=== PATIENT | female | born 1945 | race Caucasian/White ===

== ENCOUNTER 2019-06-20 09:34 | Emergency (ER) | payer MEDICARE ==
[~2019-06-20] VITALS: Ht 162.6 cm; Wt 56.8 kg
[2019-06-20] MEDS ORDERED: normal saline 1000ML IV soln IVB ONE (09:45)
[2019-06-20] MEDS ORDERED: ondansetron/PF 4mg/2ml inj IV ONE (09:45)
[2019-06-20] MEDS ORDERED: fentaNYL/PF 50MCG/1 ML 2ML syringe IV ONE (09:45)
[2019-06-20] MEDS ORDERED: ketamine 10mg/ml 20ml inj IV ONE (10:10)
[2019-06-20] MEDS ORDERED: MIDAZolam 5mg/ml 2ml vial IV ONE (10:10)
[2019-06-20] MEDS ORDERED: ketamine 50 mg/ml 10ml vial IV ONE (10:20)
[2019-06-20] MEDS ORDERED: HYDR-4383 PO (10:46)
[2019-06-20] MEDS ORDERED: ONDA4TAB6 PO (10:46)
[2019-06-20] MEDS ORDERED: HYDROcodone/acetaminophen 5mg/325mg tablet PO ONE (12:40)
[2019-06-20 14:12] VITALS: BP 130/65
== END 2019-06-20 14:14 | disposition home or self-care (01) ==
LOC: ER 09:35
DX: S82.852A Displaced trimalleolar fracture of left lower leg, initial encounter for closed fracture (principal); S93.05XA Dislocation of left ankle joint, initial encounter; Z88.6 Allergy status to analgesic agent; Z79.899 Other long term (current) drug therapy; W18.39XA Other fall on same level, initial encounter; Y93.89 Activity, other specified; Y92.89 Other specified places as the place of occurrence of the external cause; Y99.8 Other external cause status
CPT/HCPCS: 27818; 73600; 73610; 96374; 96375; 99285; J2250; J2405; J3010; J7030; 94760; 99152; 99153

== ENCOUNTER 2019-07-03 15:28 | Outpatient (CLI) | payer MEDICARE ==
[~2019-07-03 15:28] MED LIST: HYDR-4383 PO; ONDA4TAB6 PO
[2019-07-04] MEDS ORDERED: LEVO100T9 PO (15:17)
[2019-07-04] MEDS ORDERED: SIMV-45 PO (15:17)
[2019-07-04] MEDS ORDERED: ONDA4TAB6 PO (15:18)
== END 2019-07-03 16:38 | disposition home or self-care (01) ==
LOC: ORTHO 15:28
PROVIDERS: ATTEND Orthopaedic Surgery
DX: S82.852D Displaced trimalleolar fracture of left lower leg, subsequent encounter for closed fracture with routine healing (principal); S93.05XD Dislocation of left ankle joint, subsequent encounter; M81.8 Other osteoporosis without current pathological fracture; X58.XXXD Exposure to other specified factors, subsequent encounter
CPT/HCPCS: G0463

== ENCOUNTER 2019-07-05 13:43 | Day surgery (SDC) | payer MEDICARE ==
[~2019-07-05] VITALS: Ht 162.6 cm; Wt 56.2 kg
[2019-07-05] VITALS (8 sets, daily range): BP systolic 127–139; BP diastolic 70–82
[~2019-07-05 13:43] MED LIST changes: -HYDR-4383 PO; +LEVO100T9 PO; +SIMV-45 PO; +cefazolin/dext.iso 2gm/100ml 100 ML IV ONE; +famotidine 20mg tablet PO ONE; +ringers solution, lacted 1,000 ML IV SCH
[2019-07-05 14:39] LABS: BASOPHILS # (AUTO) 0.1 X10'3 (0-0.2); EOSINOPHILS # (AUTO) 0.1 X10'3 (0-0.9); EOSINOPHILS % (AUTO) 1.3 % (0-6); LYMPHOCYTES # (AUTO) 2.3 X10'3 (1.1-4.8); MEAN CORPUSCULAR HEMOGLOBIN 31.1 PG (27.0-31.0); MEAN CORPUSCULAR HGB CONC 34.2 g/dL (33.0-36.5); MEAN CORPUSCULAR VOLUME 90.7 FL (78-98); MEAN PLATELET VOLUME 7.3 FL (7.4-10.4); MONOCYTES # (AUTO) 0.5 X10'3 (0-0.9); MONOCYTES % (AUTO) 6.1 % (2-12); NEUTROPHILS # (AUTO) 5.3 X10'3 (1.8-7.7); NEUTROPHILS % (AUTO) 63.6 % (42-75); PRE OP HEMATOCRIT 40.8 % (35.0-45.0); PRE OP PLATELET COUNT 390 X10'3 (140-440); RED CELL DISTRIBUTION WIDTH 13.8 % (11.5-14.5)
[2019-07-05 14:51] LABS: ALBUMIN 3.9 G/DL (3.4-5.0); ALBUMIN/GLOBULIN RATIO 1.2 (1.1-1.5); ALKALINE PHOSPHATASE 83 IU/L (46-116); BLOOD UREA NITROGEN 17 MG/DL (7-18); BUN/CREATININE RATIO 16.5 (6.6-38.0); CHLORIDE 104 MMOL/L (99-107); CREATININE 1.03 MG/DL (0.40-0.90); PRE OP ALT 35 U/L (30-65); PRE OP ANION GAP 12 (8-16); PRE OP AST 18 U/L (10-37); PRE OP BILIRUB, TOTAL 1.9 MG/DL (0.0-1.0); PRE OP POTASSIUM 3.9 MMOL/L (3.4-5.1); PRE OP SODIUM 139 MMOL/L (135-145); TOTAL CARBON DIOXIDE 23.3 MMOL/L (24-32); TOTAL PROTEIN 7.2 G/DL (6.4-8.2); eGFR 52 ML/MIN
[2019-07-05 14:53] LABS: PRE OP GLUCOSE 101 MG/DL (70-104)
[2019-07-05] MEDS ORDERED: ceFAZolin 1000mg inj ONE ×2 (16:20→17:40)
[2019-07-05] MEDS ORDERED: BUPIVAcaine/PF 2.5 mg/ml (0.25%) 30ml vial ONE (16:20)
[2019-07-05] MEDS ORDERED: MIDAZolam 5mg/5ml vial ONE (17:02)
[2019-07-05] MEDS ORDERED: fentaNYL /PF 50mcg/ml 5ml ampule ONE (17:02)
[2019-07-05] MEDS ORDERED: propofol inj 20 ML IV ONE (18:23)
[2019-07-05] MEDS ORDERED: dexamethasone sod phosphate 4mg/ml inj. ONE (18:23)
[2019-07-05] MEDS ORDERED: LIDOcaine 1%/PF 5ML 10 MG/ML VIAL ONE (18:23)
[2019-07-05] MEDS ORDERED: ROPIVAcaine 0.5% (5mg/ml) 30ml vial ONE (18:23)
[2019-07-05] MEDS ORDERED: ondansetron/PF 4mg/2ml inj ONE (18:23)
[2019-07-05] MEDS ORDERED: flumazenil 0.1 mg/ml inj. IV ONE (18:27)
--- NOTE | 2019-07-05 18:30 | NUR ---
Received from OR via [facility], accompanied by Anesthesiologist DR KRUEGER and report given by Anesthesiologist. PT DROWSY, NO S/S OF DISTRESS/DISCOMFORT, LEFT LOWER LEG IN SPLINT CDI, TOES PWD, SIZER MACHINE 1-2 SECONDS. Addendum: 07/05/19 at 1858 by Hermila Leonardo RN Amended: Links added.
--- NOTE | 2019-07-05 19:50 | NUR ---
PT UP AND AMBULATE TO BATHROOM FOR VOID W/WALKER, HAS GOOD SKILLS AND IS STEADY W/WALKER, D/C INSTRUCTIONS GIVEN AND GONE OVER W/PT WHO VERBALIZES UNDERSTANDING, PT D/CD TO HOME VIA W/C TO PRIVATE VEHICLE W/O INCIDENT. Addendum: 07/05/19 at 1956 by Hermila Leonardo RN Amended: Links added.
== END 2019-07-05 19:50 | disposition home or self-care (01) ==
LOC: PAS 13:43
PROVIDERS: ATTEND Orthopaedic Surgery
DX: S82.842A Displaced bimalleolar fracture of left lower leg, initial encounter for closed fracture (principal); G89.18 Other acute postprocedural pain; E03.9 Hypothyroidism, unspecified; Z90.49 Acquired absence of other specified parts of digestive tract; Z90.710 Acquired absence of both cervix and uterus; Z98.890 Other specified postprocedural states; Z88.8 Allergy status to other drugs, medicaments and biological substances; Z79.899 Other long term (current) drug therapy; X58.XXXA Exposure to other specified factors, initial encounter; Y93.89 Activity, other specified; Y92.89 Other specified places as the place of occurrence of the external cause; Y99.8 Other external cause status
CPT/HCPCS: 27814; 36415; 64450; 80053; 85025; 93005; C1713; J0690; J1100; J2250; J2405; J2704; J3010; J3490; A4215; A4618; A6449; A7000; J2795; J7120

== ENCOUNTER 2019-07-12 09:19 | Outpatient (CLI) | payer MEDICARE ==
[~2019-07-12 09:19] MED LIST changes: -cefazolin/dext.iso 2gm/100ml 100 ML IV ONE; -famotidine 20mg tablet PO ONE; -ringers solution, lacted 1,000 ML IV SCH
== END 2019-07-12 09:58 | disposition home or self-care (01) ==
LOC: ORTHO 09:19
PROVIDERS: ATTEND Nurse Practitioner
DX: S82.852D Displaced trimalleolar fracture of left lower leg, subsequent encounter for closed fracture with routine healing (principal); X58.XXXD Exposure to other specified factors, subsequent encounter
CPT/HCPCS: G0463

== ENCOUNTER 2019-07-17 10:27 | Outpatient (CLI) | payer MEDICARE | END 2019-07-17 12:00 | disposition home or self-care (01) | LOC: ORTHO 10:27 | PROVIDERS: ATTEND Nurse Practitioner | DX: S82.852D Displaced trimalleolar fracture of left lower leg, subsequent encounter for closed fracture with routine healing (principal); X58.XXXD Exposure to other specified factors, subsequent encounter | CPT/HCPCS: 73600; G0463 ==

== ENCOUNTER 2019-08-07 09:05 | Outpatient (CLI) | payer MEDICARE ==
[2019-08-07 09:35] VITALS: BP 124/79
== END 2019-08-07 10:10 | disposition home or self-care (01) ==
LOC: ORTHO 09:05
PROVIDERS: ATTEND Nurse Practitioner
DX: S82.852D Displaced trimalleolar fracture of left lower leg, subsequent encounter for closed fracture with routine healing (principal); X58.XXXD Exposure to other specified factors, subsequent encounter
CPT/HCPCS: 73610; G0463

== ENCOUNTER 2019-08-21 09:21 | Outpatient (CLI) | payer MEDICARE | END 2019-08-21 09:33 | disposition home or self-care (01) | LOC: ORTHO 09:21 | PROVIDERS: ATTEND Nurse Practitioner | DX: S82.852D Displaced trimalleolar fracture of left lower leg, subsequent encounter for closed fracture with routine healing (principal); X58.XXXD Exposure to other specified factors, subsequent encounter | CPT/HCPCS: 73600; G0463 ==

== ENCOUNTER 2019-10-10 10:17 | Day surgery (SDC) | payer MEDICARE ==
[~2019-10-10] VITALS: Ht 162.6 cm; Wt 55.8 kg
[2019-10-10] VITALS (7 sets, daily range): BP systolic 122–141; BP diastolic 65–82
[~2019-10-10 10:17] MED LIST changes: -ONDA4TAB6 PO; +famotidine 20mg tablet PO ONE; +ringers solution, lacted 1,000 ML IV SCH
[2019-10-10 11:49] LABS: BASOPHILS # (AUTO) 0.1 X10'3 (0-0.2); BASOPHILS % (AUTO) 0.9 % (0-1); EOSINOPHILS # (AUTO) 0.2 X10'3 (0-0.9); EOSINOPHILS % (AUTO) 2.8 % (0-6); LYMPHOCYTES # (AUTO) 2.3 X10'3 (1.1-4.8); LYMPHOCYTES % (AUTO) 32.3 % (21-51); MEAN CORPUSCULAR HEMOGLOBIN 30.3 PG (27.0-31.0); MEAN CORPUSCULAR HGB CONC 34.1 g/dL (33.0-36.5); MEAN CORPUSCULAR VOLUME 88.7 FL (78-98); MEAN PLATELET VOLUME 7.4 FL (7.4-10.4); MONOCYTES # (AUTO) 0.5 X10'3 (0-0.9); MONOCYTES % (AUTO) 7.2 % (2-12); NEUTROPHILS # (AUTO) 4.1 X10'3 (1.8-7.7); NEUTROPHILS % (AUTO) 56.8 % (42-75); PRE OP HEMATOCRIT 43.4 % (35.0-45.0); PRE OP HEMOGLOBIN 14.8 g/dL (12.0-16.0); PRE OP PLATELET COUNT 341 X10'3 (140-440); RED BLOOD COUNT 4.89 X10'6 (4.20-5.60); RED CELL DISTRIBUTION WIDTH 14.6 % (11.5-14.5)
[2019-10-10 12:04] LABS: ALKALINE PHOSPHATASE 80 IU/L (46-116); BLOOD UREA NITROGEN 15 MG/DL (7-18); BUN/CREATININE RATIO 17.4 (6.6-38.0); CALCIUM 9.5 MG/DL (8.5-10.1); CHLORIDE 103 MMOL/L (99-107); CREATININE 0.86 MG/DL (0.40-0.90); PRE OP ALT 24 U/L (30-65); PRE OP ANION GAP 9 (8-16); PRE OP AST 16 U/L (10-37); PRE OP BILIRUB, TOTAL 1.5 MG/DL (0.0-1.0); PRE OP POTASSIUM 4.1 MMOL/L (3.4-5.1); PRE OP SODIUM 138 MMOL/L (135-145); TOTAL CARBON DIOXIDE 25.6 MMOL/L (24-32); TOTAL PROTEIN 8.1 G/DL (6.4-8.2); eGFR 64 ML/MIN
[2019-10-10 12:07] LABS: PRE OP GLUCOSE 102 MG/DL (70-104)
[2019-10-10] MEDS ORDERED: ceFAZolin 1000mg inj ONE ×3 (16:05→17:49)
[2019-10-10] MEDS ORDERED: tobramycin sulfate 1.2gm vial TP ONE (16:05)
[2019-10-10] MEDS ORDERED: vancomycin 1,000mg inj ONE ×2 (16:06→17:49)
[2019-10-10] MEDS ORDERED: BUPIVAcaine/PF 2.5 mg/ml (0.25%) 30ml vial ONE (16:06)
[2019-10-10] MEDS ORDERED: acetaminophen 1,000mg/100ml IV 100 ML IV PRN (16:40)
[2019-10-10] MEDS ORDERED: morphine 4 MG/ML inj SYRINge IV PRN (16:40)
[2019-10-10] MEDS ORDERED: meperidine/PF 25mg/ml syringe IV PRN ×3 (16:40)
[2019-10-10] MEDS ORDERED: morphine 2 MG/ML inj. syringe IV PRN (16:40)
[2019-10-10] MEDS ORDERED: ondansetron/PF 4mg/2ml inj IV PRN (16:40)
[2019-10-10] MEDS ORDERED: proCHLORperazine 10 MG/2 ml inj IV PRN (16:40)
[2019-10-10] MEDS ORDERED: sevoflurane 250ml liquid IH ONE (16:40)
[2019-10-10] MEDS ORDERED: ringers solution, lacted 1,000 ML IV SCH (16:40)
[2019-10-10] MEDS ORDERED: midazolam 2 mg/2 ml injection ONE (16:51)
[2019-10-10] MEDS ORDERED: ROPIVAcaine 0.5% (5mg/ml) 30ml vial ONE (17:04)
[2019-10-10] MEDS ORDERED: LIDOcaine 2% (20mg/ml) 5ml vial ONE (17:04)
[2019-10-10] MEDS ORDERED: propofol inj 20 ML IV ONE (17:04)
[2019-10-10] MEDS ORDERED: fentaNYL/PF 50MCG/1 ML 2ML syringe ONE (17:06)
[2019-10-10] MEDS ORDERED: dexamethasone sod phosphate 4mg/ml inj. ONE (17:07)
[2019-10-10] MEDS ORDERED: ondansetron/PF 4mg/2ml inj ONE (17:08)
[2019-10-10] MEDS ORDERED: ePHEDrine 50MG/ML INJ. ONE (17:14)
[2019-10-10] MEDS ORDERED: 0.9 % SODIUM CHLORIDE 10 ML VIAL ONE (17:26)
[2019-10-10] MEDS ORDERED: bacitracin 15gm ointment TP ONE (17:54)
--- NOTE | 2019-10-10 18:24 | NUR ---
Received from OR via [facility] , accompanied by Anesthesiologist JAD and report given by Anesthesiolgist. PATIENT WITH 20G PIVIN RIGHT UE RUNNING LR AT 100. DENIES PAIN. ANGELA TO LEFT ANKLE, + CAP REFILL AND PEDAL PULSE. PBX INSPECTOR TO COME IN TO APPLY ARLENE SPLINT. 10L MASK ON WITH 100% SATURATIONS. Addendum: 10/10/19 at 1834 by Isai Sims RN, RN Amended: Links added.
--- NOTE | 2019-10-10 19:24 | NUR ---
ALL DC CRITERIA HAS BEEN MET. IV TAKEN OUT WITHOUT COMPLICATIONS. ALL INSTRUCTIONS COVERED AND ALL QUESTIONS ANSWERED. DRESSINGS CDI. OUT VIA WHEELCHAIR TO PERSONAL VEHICLE WHERE PATIENT WAS SECURED IN AND DRIVEN HOME BY FAMILY. Addendum: 10/10/19 at 1940 by Isai Sims RN, RN Amended: Links added.
== END 2019-10-10 19:24 | disposition home or self-care (01) ==
LOC: PRE-OP 10:17
PROVIDERS: ATTEND Orthopaedic Surgery
PROC: 0J9R0ZZ Drainage of Left Foot Subcutaneous Tissue and Fascia, Open Approach (ICD-10-PCS; 2019-10-10)
PROC: 0SPG04Z Removal of Internal Fixation Device from Left Ankle Joint, Open Approach (ICD-10-PCS; principal; 2019-10-10 16:40)
DX: T84.69XA Infection and inflammatory reaction due to internal fixation device of other site, initial encounter (principal); T84.84XA Pain due to internal orthopedic prosthetic devices, implants and grafts, initial encounter; Y83.8 Other surgical procedures as the cause of abnormal reaction of the patient, or of later complication, without mention of misadventure at the time of the procedure; M65.872 Other synovitis and tenosynovitis, left ankle and foot; G89.18 Other acute postprocedural pain
CPT/HCPCS: 10180; 20680; 36415; 64445; 80053; 82948; 85025; 87015; 87070; 87075; 87077; 87102; 87116; 87186; 87206; A6222; C1713; J0690; J1100; J2001; J2250; J2405; J2704; J3010; J3370; J3490; A4215; A4618; A6449; A7000; J2795; J3260; J7120